=== PATIENT | female | born 1990 | race Caucasian/White ===

== ENCOUNTER → 2020-01-18 14:49 | Outpatient (BNVA) | payer OTHER, SELFPAY | PROVIDERS: Family Provider Family Medicine; PCP Nurse Practitioner; Visit Provider Nurse Practitioner | DX: R50.9 Fever, unspecified (principal) | CPT/HCPCS: 87804 ==

== ENCOUNTER 2023-10-28 16:00 | Emergency (ER) | payer OTHER, SELFPAY ==
[2023-10-28 16:03] VITALS: BMI 37.3
[2023-10-28 16:06] VITALS: BP 138/78; PULSE 86; RESP 16; TEMP 36.4; O2SAT 99
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
[2023-10-28 17:34] VITALS: BP 121/78; PULSE 81; O2SAT 98
== END 2023-10-28 17:38 | disposition home or self-care (01) ==
PROVIDERS: Emergency Provider Nurse Practitioner Family; PCP Nurse Practitioner
DX: S29.012A Strain of muscle and tendon of back wall of thorax, initial encounter (principal); Z79.82 Long term (current) use of aspirin; V49.40XA Driver injured in collision with unspecified motor vehicles in traffic accident, initial encounter
CPT/HCPCS: 71045; 99283

== ENCOUNTER → 2025-04-18 15:19 | Outpatient (BNVA) | payer OTHER, SELFPAY | PROVIDERS: PCP Nurse Practitioner; Visit Provider Nurse Practitioner | DX: R30.0 Dysuria (principal); R39.9 Unspecified symptoms and signs involving the genitourinary system | CPT/HCPCS: 81000; 87086 ==